=== PATIENT | female | born 1960 | race Caucasian/White ===

== ENCOUNTER 2016-09-11 22:22 | Emergency (ER) | payer BC, SELFPAY ==
[~2016-09-11 22:22] MED LIST: ARTHRICREAM85 GM TOP; B COMPLETE1 EACH PO; CYMBALTA30 MG PO; FLUOCINONIDE TOP; LEVAQUIN500 MG PO; PLAQUENIL200 MG PO; SINGULAIR10 MG PO; SYNTHROID175 MCG PO; ULTRAM50 MG PO; VITAMIN B-121000 MCG PO; XANAX0.25 MG PO; XELJANZ5 MG PO; ZYRTEC10 MG PO
== END 2016-09-12 01:35 | disposition home or self-care (01) ==
LOC: ER 22:22
DX: R30.0 Dysuria (principal); R21 Rash and other nonspecific skin eruption; R25.2 Cramp and spasm; R19.7 Diarrhea, unspecified; J45.909 Unspecified asthma, uncomplicated; E11.9 Type 2 diabetes mellitus without complications; I10 Essential (primary) hypertension; E07.9 Disorder of thyroid, unspecified; Z90.710 Acquired absence of both cervix and uterus; Z88.1 Allergy status to other antibiotic agents; Z88.2 Allergy status to sulfonamides; Z88.5 Allergy status to narcotic agent; Z91.040 Latex allergy status; Z79.82 Long term (current) use of aspirin; Z79.84 Long term (current) use of oral hypoglycemic drugs; Z79.899 Other long term (current) drug therapy
CPT/HCPCS: 36415